=== PATIENT | male | born 1945 | race Caucasian/White ===

== ENCOUNTER 2019-08-03 23:10 | Emergency (ER) | payer MEDICARE, OTHER ==
[~2019-08-03] VITALS: Ht 177.8 cm; Wt 109.1 kg
[~2019-08-03 23:10] MED LIST: ASPIR-LOW81 MG PO; ASPIRIN 32325 MG/TAB PO; ASPIRIN 81M81 MG/TA2 PO; ASPIRIN E.C. 8181 MG PO; B/P MED; CIALIS20 MG PO; COREG 25MG25 MG/TAB PO; COREG25 MG PO; COZAAR100 MG PO; CRESTOR 10MG10 MG PO; CRESTOR10 MG PO; EFFIENT10 M1 PO; EFFIENT5 MG PO; FORTAMET1000 MG PO; GLUCOPHAGE1000 MG PO; HCTZ PO; IBUPROFEN800 M1 PO; IMDUR120 MG PO; IMDUR60 MG PO; LOW DOSE ASPIRI81 MG PO; METFORMIN500 MG PO; NIASPAN500 MG PO; NITROSTAT0.4 MG/TAB SL; NORCO 325 MG-51 TAB PO; NORVASC 5MG5 MG/TAB PO; PLAVIX 75MG TAB75 MG PO; PRILOSEC 20MG20 MG PO
[2019-08-03 23:35] LABS: BASO # 0.1 (0.0-0.2); BASO % 0.5 % (0.0-2.0); EOS # 0.2 (0.0-0.7); EOS % 1.1 % (0-4.0); GRAN # 7.1 (1.4-6.5); GRAN % 53.2 % (42.2-75.2); HEMATOCRIT 45.1 % (42.0-52.0); HEMOGLOBIN 15.5 g/dl (13.5-18.0); LYMPH # 4.6 (1.2-3.4); LYMPH % 34.6 % (20.0-51.0); MEAN CELL VOLUME 88 fl (80.0-100.0); MEAN CORPUSCULAR HEMOGLOBIN 30 pg (27.0-31.0); MEAN CORPUSCULAR HGB CONC 34 g/dl (33.0-37.0); MEAN PLATELET VOLUME 11.1 fl (7.4-10.4); MONO # 1.4 (0.1-0.6); MONO % 10.2 % (1.7-9.3); PLATELET COUNT 325 K/mm3 (130-400); RED BLOOD COUNT 5.15 M/mm3 (4.20-5.60); REDCELL DISTRIBUTION WIDTH-CV 12.6 % (11.5-14.5)
[2019-08-03] MEDS ORDERED: CARDIZEM CD 12120 MG PO (23:35)
[2019-08-03] MEDS ORDERED: ASPIRIN 81M81 MG/TA2 PO (23:35)
[2019-08-03] MEDS ORDERED: PLAVIX 75MG TAB75 MG PO (23:36)
[2019-08-03] MEDS ORDERED: COREG 25MG25 MG/TAB PO (23:36)
[2019-08-03] MEDS ORDERED: COZAAR100 MG PO (23:37)
[2019-08-03] MEDS ORDERED: CRESTOR 10MG10 MG PO (23:37)
[2019-08-03] MEDS ORDERED: HCTZ12.5TAB PO (23:37)
[2019-08-03] MEDS ORDERED: PRILOSEC 20MG20 MG PO (23:38)
[2019-08-03] MEDS ORDERED: GLUCOPHAGE500 MG/TAB PO (23:38)
[2019-08-03] MEDS ORDERED: NIASPAN 500MG500 MG PO (23:39)
[2019-08-03 23:41] LABS: INR 0.9 (0.8-3.0); PROTHROMBIN TIME 10.8 SECONDS (9.7-12.8)
[2019-08-03 23:46] LABS: ALANINE AMINOTRANSFERASE 27 U/L (21-72); ALBUMIN 4.9 gm/dL (3.5-5.0); ALKALINE PHOSPHATASE 89 U/L (50-136); ANION GAP 13 mmol/L (7-16); AST,SGOT 29 U/L (15-37); BILIRUBIN,TOTAL 0.9 mg/dL (0.0-1.0); BLOOD UREA NITROGEN 9 mg/dL (9-20); CALCIUM 9.7 mg/dL (8.4-10.2); CARBON DIOXIDE 26 mmol/L (22-30); CHLORIDE 103 mmol/L (98-107); CREATININE, serum 0.93 (0.66-1.25); GLUCOSE 115 mg/dL (74-106); POTASSIUM 3.3 mmol/L (3.4-5.0); SODIUM 141 mmol/L (137-145); TOTAL PROTEIN 8.4 gm/dL (6.4-8.2)
[2019-08-03 23:57] LABS: TROPONIN-I < 0.012 ng/mL (0.000-0.035)
[2019-08-04 03:30] VITALS: BP 156/84; PULSE 63; TEMP 98.8
== END 2019-08-04 03:55 | disposition home or self-care (01) ==
LOC: COL.ER 23:10
PROVIDERS: Emergency Medicine
DX: T50.995A Adverse effect of other drugs, medicaments and biological substances, initial encounter (principal); I10 Essential (primary) hypertension; E11.9 Type 2 diabetes mellitus without complications; I25.10 Atherosclerotic heart disease of native coronary artery without angina pectoris; Z79.82 Long term (current) use of aspirin; Z79.02 Long term (current) use of antithrombotics/antiplatelets; Z90.89 Acquired absence of other organs; Z79.84 Long term (current) use of oral hypoglycemic drugs
CPT/HCPCS: J2060

== ENCOUNTER → 2020-03-08 | Outpatient (CLI) | payer MEDICARE, OTHER ==
[~2020-03-08] MED LIST changes: +CARDIZEM CD 12120 MG PO; +GLUCOPHAGE500 MG/TAB PO; +HCTZ12.5TAB PO; +NIASPAN 500MG500 MG PO
== END ==
LOC: COL.RAD 07:04
DX: N28.1 Cyst of kidney, acquired (principal); I70.1 Atherosclerosis of renal artery; K57.30 Diverticulosis of large intestine without perforation or abscess without bleeding; Z90.49 Acquired absence of other specified parts of digestive tract
CPT/HCPCS: Q9967

== ENCOUNTER → 2024-04-13 | Outpatient (CLI) | payer MEDICARE ==
[~2024-04-13] MED LIST changes: +Gadoterate 20 ML VIAL IV ONE; +PRINIVIL10 MG PO
== END ==
LOC: COL.RAD 11:26
DX: N40.0 Benign prostatic hyperplasia without lower urinary tract symptoms (principal)
CPT/HCPCS: A9575

== ENCOUNTER 2024-04-22 15:47 | Inpatient (IN) | payer MEDICARE ==
[~2024-04-22] VITALS: Ht 177.8 cm; Wt 96.7 kg
[~2024-04-22 15:47] MED LIST changes: -Gadoterate 20 ML VIAL IV ONE
[2024-04-22] MEDS ORDERED: NS 1,000 ML IV ONE (16:30)
[2024-04-22 16:47] LABS: BASO % 0.2 % (0.0-2.0); EOS # 0.1 K/mm3 (0.0-0.7); EOS % 0.6 % (0.0-4.0); GRAN # 9.2 K/mm3 (1.4-6.5); GRAN % 74.4 % (42.2-75.2); HEMOGLOBIN 14.2 g/dl (13.5-18.0); LYMPH # 1.7 K/mm3 (1.2-3.4); LYMPH % 13.9 % (20.0-51.0); MEAN CELL VOLUME 83 fl (80.0-100.0); MEAN CORPUSCULAR HEMOGLOBIN 31 pg (27-31); MEAN CORPUSCULAR HGB CONC 37 g/dl (33.0-37.0); MEAN PLATELET VOLUME 11.6 fl (7.4-10.4); MONO # 1.3 K/mm3 (0.1-0.6); MONO % 10.1 % (1.7-9.3); PLATELET COUNT 303 K/mm3 (130-400); RED BLOOD COUNT 4.57 M/mm3 (4.20-5.60); REDCELL DISTRIBUTION WIDTH-CV 11.1 % (11.5-14.5)
[2024-04-22 17:27] LABS: ALBUMIN 3.8 g/dL (3.4-4.8); CALCIUM 9.2 mg/dL (8.4-10.2); CREATININE, serum 1.22 mg/dL (0.72-1.25); TOTAL PROTEIN 6.1 g/dl (6.2-8.1)
[2024-04-22 17:38] LABS: POTASSIUM 2.6 mEq/L (3.5-4.5)
[2024-04-22 17:48] LABS: BILIRUBIN,TOTAL 1.9 mg/dL (0.2-1.2)
[2024-04-22] MEDS ORDERED: dilTIAZem CD (24-HR) 120 MG CAP PO SCH (18:49)
[2024-04-22 19:00] LABS: COLLECTION METHOD CATHETER
[2024-04-22 19:02] LABS: URINE APPEARANCE CLEAR (CLEAR/HAZY); URINE BLOOD NEGATIVE (NEGATIVE); URINE COLOR YELLOW (YELLOW); URINE GLUCOSE NEGATIVE (NEGATIVE); URINE KETONE NEGATIVE (NEGATIVE); URINE NITRATE NEGATIVE (NEGATIVE); URINE PROTEIN(semi-quant) NEGATIVE (NEGATIVE)
[2024-04-22] MEDS ORDERED: COREG 25MG25 MG/TAB PO (19:13)
[2024-04-22] MEDS ORDERED: NEURONTIN300 MG/CAP PO (19:14)
[2024-04-22] MEDS ORDERED: NS & 40 mEq KCl 1,000 ML IV SCH (19:15)
[2024-04-22] MEDS ORDERED: Acetaminophen 325 MG TAB PO PRN (19:15)
[2024-04-22] MEDS ORDERED: HYDROCHLOROTH12.5 MG PO (19:15)
[2024-04-22] MEDS ORDERED: BENICAR40 MG PO (19:15)
[2024-04-22] MEDS ORDERED: ULTRAM 50MG TAB50 MG PO (19:16)
[2024-04-22] MEDS ORDERED: Glucagon 1 MG VIAL IM PRN (19:45)
[2024-04-22] MEDS ORDERED: Dextrose 50% Water 25 GM/50 ML SYRINGE IV PRN (19:45)
[2024-04-22] MEDS ORDERED: Dextrose (Glucose) 15 GM (4 x 3.75 GM) Chewable TABLET PACK PO PRN (19:45)
[2024-04-22] MEDS ORDERED: Famotidine 20 MG TAB PO SCH (21:00)
[2024-04-22] MEDS ORDERED: Rosuvastatin 10 MG **** subs to Atorvastatin 20 MG PO SCH (21:00)
--- NOTE | 2024-04-22 21:00 | NUR ---
PATIENT ARRIVED TO ROOM AT 2053. ORIENTED TO ROOM AND CALL LIGHT USE, ENSURED CALL LIGHT IS WITHIN REACH. ADVISED TO CALL IF HE NEEDS ASSISTANCE TO RESTROOM. HE IS ALERT AND ORIENTED, STABLE ON ROOM AIR. WAS ABLE TO WALK FROM CART TO BED WITH STANDBY ASSIST. STATES HE OCCASIONALLY USES CANE AT HOME WHEN HE FEELS LIKE HE NEEDS IT. BED IS LOCKED AND IN LOW POSITION WITH BED ALARM ON.
[2024-04-22 21:01] VITALS: BP 146/56; PULSE 60; TEMP 97.8
[2024-04-22 21:06] VITALS: BP_SYST 146
[2024-04-22] MEDS ORDERED: Atorvastatin 20 MG TAB PO SCH (21:30)
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
[2024-04-22 23:36] VITALS: BP 108/62; PULSE 64; TEMP 98
[2024-04-22 23:37] VITALS: BP_SYST 108
[2024-04-23] VITALS (10 sets, daily range): BP systolic 109–144; BP diastolic 63–79; PULSE 56–63; TEMP 97.4–98.3
[2024-04-23] MEDS ORDERED: *Potassium Replacement Protocol MC SCH ×2 (02:30→10:15)
--- NOTE | 2024-04-23 02:54 | NUR ---
Called hospitalist, Mahendra HOYT, to clarify placing patient on potassium protocol due to potassium of 2.6 in the ED. Mahendra okayed this and protocol orders are initiated.
[2024-04-23 06:57] LABS: BASO % 0.3 % (0.0-2.0); EOS # 0.1 K/mm3 (0.0-0.7); EOS % 0.7 % (0.0-4.0); GRAN # 8.8 K/mm3 (1.4-6.5); GRAN % 73.6 % (42.2-75.2); HEMATOCRIT 37.6 % (42.0-52.0); HEMOGLOBIN 13.6 g/dl (13.5-18.0); LYMPH # 1.7 K/mm3 (1.2-3.4); LYMPH % 14.1 % (20.0-51.0); MEAN CELL VOLUME 85 fl (80.0-100.0); MEAN CORPUSCULAR HEMOGLOBIN 31 pg (27-31); MEAN CORPUSCULAR HGB CONC 36 g/dl (33.0-37.0); MEAN PLATELET VOLUME 11.3 fl (7.4-10.4); MONO # 1.3 K/mm3 (0.1-0.6); MONO % 10.6 % (1.7-9.3); PLATELET COUNT 271 K/mm3 (130-400); RED BLOOD COUNT 4.42 M/mm3 (4.20-5.60); REDCELL DISTRIBUTION WIDTH-CV 11.2 % (11.5-14.5)
[2024-04-23 07:20] LABS: CALCIUM 8.5 mg/dL (8.4-10.2); CREATININE, serum 1.03 mg/dL (0.72-1.25)
[2024-04-23 07:25] LABS: POTASSIUM 2.9 mEq/L (3.5-4.5)
[2024-04-23 07:31] LABS: THYROID STIMULATING HORMONE 0.505 uIU/mL (0.350-4.940)
[2024-04-23] MEDS ORDERED: Clopidogrel 75 MG TAB PO SCH (09:00)
--- NOTE | 2024-04-23 09:34 | NUR ---
metalworker met with pt to discuss discharge planning. He reports to live alone in [place]. He sees Dr. Montgomery for PCP needs and obtains medications from [facility] with no difficulties. He verified to have Medicare [employer] insurance. Pt reports to be independent with ADLS and uses no DME. He does not have a DPOA-HC and reports to have two living sisters, Esmer [phone] and Lizy. Pt expressed no further needs. Pt allowed SW to use his phone to call sisterEsmer to obtain her full number as he could not provide this. Esmer had no questions and concerns with pt returning home upon discharge. PT/OT Pending Discharge Plan: likely home
[2024-04-23] MEDS ORDERED: Potassium Bicarbonate/Citrate 20 MEQ Effervescent TAB PO SCH ×2 (10:15→20:30)
--- NOTE | 2024-04-23 11:38 | NUR ---
D: Premium Auditor stopped by room on rounds A: Pt was resting and content. Pt has no needs right now. Pt appreciated the visit. P: Premium Auditor informed pt that if he needed anything from the reordering clerk area to let his nurse know. Premium Auditor will follow up as needed.
[2024-04-23] MEDS ORDERED: Gadoterate 20 ML VIAL IV ONE (11:59)
[2024-04-23] MEDS ORDERED: Insulin Lispro (HumaLOG) SQ SCH ×2 (12:00)
[2024-04-23] MEDS ORDERED: NS 100 ML IV SCH (12:26)
[2024-04-23] MEDS ORDERED: Iohexol 300 - 100 ML VIAL IV ONE (12:27)
[2024-04-23 14:42] LABS: CALCIUM 8.8 mg/dL (8.4-10.2); CREATININE, serum 1.04 mg/dL (0.72-1.25); POTASSIUM 3.6 mEq/L (3.5-4.5)
--- NOTE | 2024-04-23 20:51 | NUR ---
PATIENT RESTING IN BED WATCHING TV. DENIES PAIN, SHORTNESS OF BREATH, CHEST PAIN. CALL LIGHT IS WITHIN REACH. BED IS LOCKED AND IN LOW POSITION WITH BED ALARM ON. DENIES ANY OTHER NEEDS AT THIS TIME.
[2024-04-23] MEDS ORDERED: ENOXAPARIN 40 MG SQ SCH (21:00)
[2024-04-24 00:31] VITALS: BP_SYST 144
[2024-04-24 04:22] VITALS: BP_SYST 144
[2024-04-24 04:26] VITALS: BP 128/71; PULSE 61; TEMP 97.6
[2024-04-24 06:29] LABS: BASO % 0.3 % (0.0-2.0); EOS # 0.1 K/mm3 (0.0-0.7); EOS % 0.5 % (0.0-4.0); GRAN # 8.1 K/mm3 (1.4-6.5); GRAN % 68.8 % (42.2-75.2); HEMATOCRIT 37.3 % (42.0-52.0); HEMOGLOBIN 13.7 g/dl (13.5-18.0); LYMPH # 2.1 K/mm3 (1.2-3.4); LYMPH % 17.8 % (20.0-51.0); MEAN CELL VOLUME 86 fl (80.0-100.0); MEAN CORPUSCULAR HEMOGLOBIN 32 pg (27-31); MEAN CORPUSCULAR HGB CONC 37 g/dl (33.0-37.0); MEAN PLATELET VOLUME 11.2 fl (7.4-10.4); MONO # 1.4 K/mm3 (0.1-0.6); MONO % 11.9 % (1.7-9.3); PLATELET COUNT 260 K/mm3 (130-400); RED BLOOD COUNT 4.34 M/mm3 (4.20-5.60); REDCELL DISTRIBUTION WIDTH-CV 11.6 % (11.5-14.5)
[2024-04-24 06:44] LABS: CALCIUM 8.6 mg/dL (8.4-10.2); CREATININE, serum 0.87 mg/dL (0.72-1.25); POTASSIUM 4.1 mEq/L (3.5-4.5)
[2024-04-24 07:27] VITALS: BP 123/69; PULSE 60; TEMP 97.5
[2024-04-24 08:22] VITALS: BP_SYST 123
--- NOTE | 2024-04-24 09:02 | NUR ---
PATIENT SITTING UP IN CHAIR. ALERT AND ORIENTED. WATCHING TV, EATING BREAKFAST. PATIENT TELLS THIS NURSE HE "FEELS MUCH BETTER AND IS READY TO GO HOME." DENIES PAIN OR DISCOMFORT. VSS. CALL LIGHT WITHIN REACH.
[2024-04-24] MEDS ORDERED: CRESTOR20 MG PO (09:30)
--- NOTE | 2024-04-24 11:00 | NUR ---
THIS RN PROVIDED PATIENT WITH DISCHARGE EDUCATION AND INSTRUCTIONS. ALL QUESTIONS ANSWERED. IV TO LFA DISCONTINUED FOR DISCHARGE. MINIMAL DRAINAGE NOTED. PATIENT DENIES FURTHER NEEDS/CONCERNS AT THIS TIME.
[2024-04-24 11:39] VITALS: BP 158/84; PULSE 62; TEMP 97.6
--- NOTE | 2024-04-24 12:00 | NUR ---
PATIENT ESCORTED OFF UNIT VIA WHEELCHAIR BY THIS RN. ALL BELONGINGS WITH PATIENT.
== END 2024-04-24 12:00 | disposition home or self-care (01) | DRG 641 ==
LOC: COL.ER 15:47 → MEDICAL 19:38
PROVIDERS: Personal Emergency Response Attendant; Physician Assistant; ADMIT Internal Medicine
PROC: 0TPB70Z Removal of Drainage Device from Bladder, Via Natural or Artificial Opening (ICD-10-PCS; principal; 2024-04-22)
DX: E87.1 Hypo-osmolality and hyponatremia (principal); E87.6 Hypokalemia; E78.5 Hyperlipidemia, unspecified; Z96.0 Presence of urogenital implants; K21.9 Gastro-esophageal reflux disease without esophagitis; E11.9 Type 2 diabetes mellitus without complications; I11.0 Hypertensive heart disease with heart failure; Z20.822 Contact with and (suspected) exposure to COVID-19; R29.701 NIHSS score 1; R33.9 Retention of urine, unspecified; Z95.0 Presence of cardiac pacemaker; Z87.01 Personal history of pneumonia (recurrent); Z90.49 Acquired absence of other specified parts of digestive tract; Z90.89 Acquired absence of other organs; Z87.891 Personal history of nicotine dependence
CPT/HCPCS: A9575; J1650; J3480; J7030; Q9967

== ENCOUNTER 2024-05-06 10:27 | Inpatient (IN) | payer MEDICARE ==
[~2024-05-06] VITALS: Ht 177.8 cm; Wt 92.3 kg
[~2024-05-06 10:27] MED LIST changes: +BENICAR40 MG PO; +CRESTOR20 MG PO; +HYDROCHLOROTH12.5 MG PO; +NEURONTIN300 MG/CAP PO; +ULTRAM 50MG TAB50 MG PO
[2024-05-06] MEDS ORDERED: PRINIVIL10 MG PO (16:31)
[2024-05-06] MEDS ORDERED: Sennosides/Docusate 8.6-50 MG TAB PO PRN (17:15)
[2024-05-06] MEDS ORDERED: Docusate Sodium 100 MG CAP PO PRN (17:15)
[2024-05-06] MEDS ORDERED: Polyethylene Glycol 3350 17 GM PDS PO PRN (17:15)
[2024-05-06] MEDS ORDERED: Acetaminophen 325 MG TAB PO PRN (17:15)
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
[2024-05-06 17:37] VITALS: BP 114/64; PULSE 63; TEMP 98.4
[2024-05-06 21:00] VITALS: BP_SYST 114
[2024-05-06] MEDS ORDERED: metFORMIN 500 MG TAB PO SCH (21:00)
[2024-05-06] MEDS ORDERED: Atorvastatin 40 MG TAB PO SCH (21:00)
[2024-05-06] MEDS ORDERED: Rosuvastatin 20 MG **** subs to Atorvastatin 40 MG PO SCH (21:00)
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
[2024-05-07] MEDS ORDERED: Heparin 5,000 UNITS/ML 1 ML VIAL SQ SCH
--- NOTE | 2024-05-07 02:55 | NUR ---
PATIENT UP TO RESTROOM WITH 2 ASSISST, GAIT BELT AND WALKER. PATIENT VOIDING SAMANTA, CLEAR URINE. CERVICLE FUSION SURGICAL SITE IS WELL APPROXIMATED AND OPEN TO AIR.
[2024-05-07 04:48] VITALS: BP 131/77; PULSE 70; TEMP 97.5
[2024-05-07 05:45] VITALS: BP 177/80; PULSE 70; TEMP 98.3
--- NOTE | 2024-05-07 06:09 | NUR ---
ENTERED PATIENT ROOM. RT EYE SWOLLEN ALMOST SHUT, COLD NS SOAKED GAUZE APPLIED TO AREA. PATIENT STATES STILL ABLE TO SEE OUT OF AFFECTED EYE. DRIED BLOOD MATTED HAIR NOTED ON BEDSIDE TABLE. PATIENT STATED IT WAS PULLING SO HE TRIED TO REMOVE SOME AND RIPPED SOME HAIR OUT. WARM WASH CLOTH PLACED ON HAIR IN AN ATTEMPT TO LOOSEN DRIED BLOOD.
[2024-05-07 07:00] VITALS: BP_SYST 177
[2024-05-07] MEDS ORDERED: Omeprazole 20 MG **** subs to Pantoprazole 40 MG PO SCH (07:00)
--- NOTE | 2024-05-07 07:45 | NUR ---
Pt a&ox4. BP high this morning. BP meds administered as well as other morning medications. Shift assessment complete. Up with assist x1, walker, and gait belt. Merrill collar on. No c/o pain at this time. Call light and personal belongings within reach. No further needs at this time. Refused breakfast this morning.
[2024-05-07] MEDS ORDERED: Carvedilol 25 MG TAB PO SCH (08:00)
[2024-05-07] MEDS ORDERED: dilTIAZem CD (24-HR) 120 MG CAP PO SCH (09:00)
[2024-05-07] MEDS ORDERED: Niacin SA 250 MG CAP PO SCH (09:00)
[2024-05-07] MEDS ORDERED: Polyethylene Glycol 3350 17 GM PDS PO SCH (09:00)
[2024-05-07] MEDS ORDERED: Lisinopril 10 MG TAB PO SCH (09:00)
[2024-05-07] MEDS ORDERED: Influenza Virus Vaccine, Hi-Dose Triv '24-25 (65 YR+) 0.5 ML SYRINGE IM SCH (09:00)
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
[2024-05-07 17:41] VITALS: BP 149/71; PULSE 61; TEMP 97.7
[2024-05-07 22:47] VITALS: BP_SYST 149
--- NOTE | 2024-05-08 01:55 | NUR ---
PT RESTING IN BED AT THIS TIME. CALL LIGHT IS WITHIN REACH. MEDICATIONS ADMINISTERED PER EMAR. ASSESSMENT COMPLETED EARLIER. PT HAS NO COMPLAINTS. VSS. COMPLAINT OF SOME PAIN IN SHOULDER. TYL GIVEN AND READJUSTED. NO OTHER NEEDS AT THIS TIME.
[2024-05-08 05:25] VITALS: BP 133/75; PULSE 60; TEMP 97.9
[2024-05-08 06:57] VITALS: BP_SYST 133
--- NOTE | 2024-05-08 08:00 | NUR ---
PT AWAKE AND RESTING IN CHAIR. SCHEDULED MEDS GIVEN PER eMAR. ASPEN COLLAR IN PLACE. PT DENIES PAIN. STATES SOME DISCOMFORT D/T HOSPITAL BED AND ALSO WASN'T ABLE TO SLEEP WELL LAST NIGHT B/C OF BED. NO OTHER CONCERNS. CHAIR ALARM ON AND CALL LIGHT WITHIN REACH.
--- NOTE | 2024-05-08 13:57 | NUR ---
SW met with patient briefly to follow up before the weekend. Patient denied any needs at this time. Discussed scheduling a family meeting for next Saturday which patient is agreeable to and stated "I only want my two sisters and no one else." SW agreed to communicate this to his family. SW called sister Esmer ([phone]) to discuss family meeting. She is agreeable to 05/13 at 1015 and stated she will contact their sister Lizy. IPR Director notified of meeting time. Discharge plan: re-eval
[2024-05-08 18:00] VITALS: BP 113/62; PULSE 60; TEMP 97.6
[2024-05-08 19:21] VITALS: BP_SYST 113
[2024-05-08] MEDS ORDERED: Melatonin 3 MG TAB PO SCH (21:00)
--- NOTE | 2024-05-08 23:48 | NUR ---
PT IN READJUSTED IN BED. CALL LIGHT IS WITHIN REACH. NO COMPLAINTS AT THIS TIME. ASSESSMENT COMLETED EARLIER. MEDICATONS ADMINISTERED PER EMAR. VSS. DENIES N/V.
[2024-05-09 06:00] VITALS: BP 138/53; PULSE 60; TEMP 97.5
[2024-05-09 06:49] VITALS: BP_SYST 138
--- NOTE | 2024-05-09 08:22 | NUR ---
PT RESTING IN CHAIR, ALERT AND ORIENTEDX4. ASSESSED PT. RATES PAIN 2/10 IN THE NECK. ASPEN COLAR IS ON. MERCEDES AND SUTURES TO FACE AND SCALP ARE INTACT. LUE EDEMA. LUE WEAKNESS. GAVE PT MORNING MEDS. NO OTHER COMPLAITNS AT THIS TIME. CALL LIGHT WITHIN REACH.
[2024-05-09] MEDS ORDERED: Clopidogrel 75 MG TAB PO SCH (09:00)
[2024-05-09] MEDS ORDERED: Dextrose 50% Water 25 GM/50 ML SYRINGE IV PRN (16:30)
[2024-05-09] MEDS ORDERED: Dextrose (Glucose) 15 GM (4 x 3.75 GM) Chewable TABLET PACK PO PRN (16:30)
[2024-05-09] MEDS ORDERED: Glucagon 1 MG VIAL IM PRN (16:30)
[2024-05-09 16:56] VITALS: BP 130/70; PULSE 75; TEMP 97.5
[2024-05-09] MEDS ORDERED: Insulin Lispro (HumaLOG) SQ SCH (17:00)
[2024-05-09 18:57] VITALS: BP_SYST 130
--- NOTE | 2024-05-09 22:49 | NUR ---
PT IS CURRENTLY IN CHAIR AT BEDSIDE. HAS NO COMPLAINTS AT THIS TIME. CALL LIGHT IS WITHIN REACH. ASSESSMENT COMPLETED EARLIER. MEDICATIONS ADMINISTERED PER EMAR. VSS. HAS SOME PAIN IN NECK AND TYLENOL WAS ADMINISTERED PER EMAR.
--- NOTE | 2024-05-10 02:55 | NUR ---
PT COMPLAINING OF 7/10 PAIN FROM SHOULDERS TO LOWER BACK. RE-POSITIONED PT, GAVE WARM COMPRESS, AND TYL ADMINISTERED. PT STILL COMPLAINS 7/10 PAIN. STATES THAT HE "IS GIVING UP" AND THE "PAIN IS WORSE THAN BEFORE". MAXIMO MALAVE NOTIFIED. WILL GIVE TRAMADOL PER EMAR.
[2024-05-10] MEDS ORDERED: traMADol 50 MG TAB PO PRN (03:00)
[2024-05-10 06:06] VITALS: BP 101/63; PULSE 60; TEMP 97.4
--- NOTE | 2024-05-10 06:12 | NUR ---
MEDS PASSED. CALL LIGHT WITHIN REACH. NO COMPLAINTS AT THIS TIME.
[2024-05-10 06:53] VITALS: BP_SYST 101
--- NOTE | 2024-05-10 09:31 | NUR ---
PT RESTING IN BED, ALERT AND ORIENTEDX4. ASSESSED PT. RATES PAIN 1/10 IN THE NECK. PT STATES THAT THE TORADOL HELPED LAST NIGHT. EDEMA IN LUE. LUE WEAKNESS. NO OTHER COMPLAINTS AT THIS TIME. CALL LIGHT WITHIN REACH.
[2024-05-10 16:38] VITALS: BP 123/78; PULSE 84; TEMP 97.4
[2024-05-10 18:57] VITALS: BP_SYST 123
--- NOTE | 2024-05-10 20:57 | NUR ---
PT LAYING IN BED. NO NEEDS AT THIS TIME. CALL LIGHT IS WITHIN REACH. STATES THAT HE IS FEELING MUCH BETTER AFTER LAST NIGHT. ASSESSMENT COMPLETED EARLIER. MEDICATIONS ADMINISTERED PER EMAR. PERSONAL BELONGINGS IN REACH. MEPILEX ON
[2024-05-10] MEDS ORDERED: Sodium Chloride 0.65% Nasal Irrig 45 ML BOTTLE NS PRN (21:30)
[2024-05-11 05:57] VITALS: BP 133/75; PULSE 60; TEMP 98
[2024-05-11 07:02] VITALS: BP_SYST 133
--- NOTE | 2024-05-11 08:37 | NUR ---
PT SITTING UP IN BED. REFUSED BREAKFAST. AM MEDS GIVEN ORDERED. PT TAKES PILLS WHOLE WITH STRAW FOR LIQUIDS. PT DENIES PAIN THIS AM. HEPARIN DVT PROPHALAXIS AND ASA. PT IS A/O X4. 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
[2024-05-11 08:52] LABS: BASO % 0.3 % (0.0-2.0); EOS # 0.1 K/mm3 (0.0-0.7); EOS % 1.1 % (0.0-4.0); GRAN # 5.2 K/mm3 (1.4-6.5); GRAN % 78.9 % (42.2-75.2); LYMPH # 0.6 K/mm3 (1.2-3.4); LYMPH % 9.3 % (20.0-51.0); MEAN CELL VOLUME 91 fl (80.0-100.0); MEAN CORPUSCULAR HGB CONC 34 g/dl (33.0-37.0); MONO # 0.6 K/mm3 (0.1-0.6); MONO % 9.6 % (1.7-9.3); PLATELET COUNT 306 K/mm3 (130-400); RED BLOOD COUNT 2.79 M/mm3 (4.20-5.60); REDCELL DISTRIBUTION WIDTH-CV 13.6 % (11.5-14.5)
[2024-05-11 09:12] LABS: CALCIUM 8.2 mg/dL (8.4-10.2); CREATININE, serum 0.73 mg/dL (0.72-1.25); POTASSIUM 3.4 mEq/L (3.5-4.5)
[2024-05-11 09:30] LABS: HEMATOCRIT 25.5 % (42.0-52.0); HEMOGLOBIN 8.6 g/dl (13.5-18.0); MEAN CORPUSCULAR HEMOGLOBIN 31 pg (27-31)
[2024-05-11] MEDS ORDERED: Potassium Bicarbonate/Citrate 20 MEQ Effervescent TAB PO ONE (10:00)
--- NOTE | 2024-05-11 14:39 | NUR ---
Admission QIM scores were reviewed by the team. Code of 3 chosen for oral hygiene was determined by team discussion to be the most usual performance before interventions for this patient during the assessment period. Code of 88 chosen for shower/bathe self was determined by team discussion to be the most usual performance before interventions for this patient during the assessment period. Code of 88 chosen for putting on/taking off footwear was determined by team discussion to be the most usual performance before interventions for this patient during the assessment period. Code of 3 chosen for sit to lying was determined by team discussion to be the most usual performance before interventions for this patient during the assessment period. Code of 88 chosen for walking 10 feet was determined by team discussion to be the most usual performance for this patient during the discharge assessment period. Code of 88 chosen for walking 50 feet w/ 2 turns was determined by team discussion to be the most usual performance before interventions for this patient during the discharge assessment period. Code of 88 chosen for walking 150 feet was determined by team discussion to be the most usual performance before interventions for this patient during the assessment period. Code of 3 chosen for 1 step was determined by team discussion to be the most usual performance before interventions for this patient during the assessment period. Code of 3 chosen for 4 steps was determined by team discussion to be the most usual performance before interventions for this patient during the assessment period.--Kath García,
--- NOTE | 2024-05-11 15:46 | NUR ---
ELENA met with patient and his sister Belgica in room to check in. Patient voicing frustration that "I'm still here". Patient anxious to return home. ELENA discussed upcoming family meeting scheduled for Saturday at 1015, which Belgica and patient are agreeable. Discharge plan: Home
[2024-05-11 17:43] VITALS: BP 122/75; PULSE 60; TEMP 98
--- NOTE | 2024-05-11 17:49 | NUR ---
PT HAS HAD SOME ORTHOSTATIC HYPOTENSION TODAY BUT THIS PM MILD. PT IS ASYMPTOMATIC THIS PM.
[2024-05-11 19:22] VITALS: BP_SYST 122
--- NOTE | 2024-05-12 03:13 | NUR ---
ASSESSMENT COMPLETED EARLIER. MEDICATIONS ADMINISTERED PER EMAR. NO COMPLAINTS AT THIS TIME. CALL LIGHT IS WITHIN REACH. VSS. DENIES N/V.
[2024-05-12 04:55] VITALS: BP 143/77; PULSE 65; TEMP 97.8
[2024-05-12 07:01] VITALS: BP_SYST 143
--- NOTE | 2024-05-12 08:40 | NUR ---
PT UP TO BR VOIDED AND RETURNED TO BED FOR BREAKFAST. NO C/O DIZZINESS THIS AM. AM MEDS GIVEN PER ORDERS. PT WORKING WITH ST AT THIS TIME. MEPILEX TO MULTIPLE ABRASIONS TO BILATERAL UPPER EXT. PT DENIES PAIN OR NEEDS AT THIS TIME
--- NOTE | 2024-05-12 11:05 | NUR ---
SPOKE WITH DR. POWELL NEUROSURGEON AT [facility]. HE REQUESTED TO BE NOTIFIED WHEN PT DISCHARGES SO HE CAN MAKE A FOLLOW UP APPT WITH PT. [phone]
[2024-05-12 18:28] VITALS: BP 146/76; PULSE 60; TEMP 97.7
--- NOTE | 2024-05-12 19:04 | NUR ---
PT IS IN BED SLEEPING. EASILY AWOKEN. CALL LIGHT IS WITHIN REACH.
[2024-05-12 19:11] VITALS: BP_SYST 146
--- NOTE | 2024-05-12 22:18 | NUR ---
ASSESSMENT COMPLETED EARLIER. MEDICATIONS ADMINISTERED PER EMAR. NO COMPLAINTS AT THIS TIME. BANDAGES CHANGED, NOW CDI. POSSESSIONS ARE WITHIN REACH. NOW LAYING IN BED WATCHING TV. VSS. DENIES N/V AT THIS TIME.
--- NOTE | 2024-05-13 02:42 | NUR ---
PT HAVING TROUBLE SLEEPING THIS PM. STATES "I JUST CANT GET COMFORTABLE".
[2024-05-13 05:52] VITALS: BP 126/69; PULSE 62; TEMP 98.4
[2024-05-13 07:00] VITALS: BP_SYST 126
--- NOTE | 2024-05-13 08:15 | NUR ---
PT A&OX4. VSS. UP IN W/C WAITING FOR THERAPY. SHIFT ASSESSMENT COMPLETE AND MEDICATIONS ADMINISTERED. PT IS UP WITH ASSIST X1, WALKER, AND GB. WOUNDS ASSESSED FOR DRAINAGE AND BLEEDING. NONE FOUND. NO FURTHER NEEDS AT THIS TIME. CALL LIGHT AND PERSONAL BELONGINGS WITHIN REACH.
--- NOTE | 2024-05-13 13:43 | NUR ---
SW attended team conference this morning. Team discussed patient's progress with therapy and discharge recommendations. Team set tentative discharge date of 05/22. SW attended family meeting with Dr. Gonzalez, Banquet Server Kath and therapy team, patient and sister Belgica. Team reviewed patient's progress in program and discuss discharge recommendations. All questions answered from patient and sister. Sister reports that plan is for patient to go to her home at discharge until he is stronger. Belgica provided her address to for HH referral as [address] [place] [address]. SW met with patient to review team conference notes and provided Medicare.gov list of HH providers. Patient and sister to review HH list and let SW know their preference. All questions answered. Discharge plan: Home with sister and HH
[2024-05-13 17:58] VITALS: BP 137/74; PULSE 64; TEMP 97.4
[2024-05-13 19:03] VITALS: BP_SYST 137
--- NOTE | 2024-05-13 21:36 | NUR ---
Patient assessed around 2024. Alert and oriented, and able to make needs known. Denies having pain and discomfort. Denies SOB and dyspnea. LS CTA. HRR. BSAx4. Edema to LUE. Patient voiced no questions, needs, or concerns at time of assessment. In bed with call light within reach. Bed alarm on.
--- NOTE | 2024-05-13 23:21 | NUR ---
Patient given PRN Tylenol as requested for generalized pain. Assisted to recliner as requested to get a break from the bed. Chair alarm on. Call light within reach.
[2024-05-14 05:46] VITALS: BP 120/65; PULSE 61; TEMP 97.4
--- NOTE | 2024-05-14 05:54 | NUR ---
Patient sat in recliner for a short time during the night. Received Tylenol once this shift. Denies needing any further PRN medication at this time. Voices no questions, needs, or concerns at this time. In bed with call light within reach.
[2024-05-14 07:00] VITALS: BP_SYST 120
[2024-05-14 07:25] LABS: BASO % 0.3 % (0.0-2.0); EOS # 0.1 K/mm3 (0.0-0.7); EOS % 1.2 % (0.0-4.0); GRAN # 4.3 K/mm3 (1.4-6.5); GRAN % 72.3 % (42.2-75.2); HEMATOCRIT 25.8 % (42.0-52.0); LYMPH # 0.9 K/mm3 (1.2-3.4); LYMPH % 15.7 % (20.0-51.0); MEAN CELL VOLUME 91 fl (80.0-100.0); MEAN CORPUSCULAR HEMOGLOBIN 32 pg (27-31); MEAN CORPUSCULAR HGB CONC 35 g/dl (33.0-37.0); MEAN PLATELET VOLUME 10.6 fl (7.4-10.4); MONO # 0.6 K/mm3 (0.1-0.6); MONO % 10.2 % (1.7-9.3); PLATELET COUNT 350 K/mm3 (130-400); RED BLOOD COUNT 2.84 M/mm3 (4.20-5.60); REDCELL DISTRIBUTION WIDTH-CV 13.9 % (11.5-14.5)
[2024-05-14 07:51] LABS: CALCIUM 8.5 mg/dL (8.4-10.2); CREATININE, serum 0.79 mg/dL (0.72-1.25); POTASSIUM 3.4 mEq/L (3.5-4.5)
--- NOTE | 2024-05-14 08:00 | NUR ---
Pt a&ox4. VSS. No c/o pain at this time. Currently in bed eating breakfast. Shift assessment complete and medications administered. Pt is up with assist x1, walker, and gait belt. No further needs at this time. Call light within reach.
[2024-05-14] MEDS ORDERED: Potassium Bicarbonate/Citrate 20 MEQ Effervescent TAB PO ONE (09:15)
[2024-05-14 17:44] VITALS: BP 142/60; PULSE 64; TEMP 97.6
[2024-05-14 19:00] VITALS: BP_SYST 142
--- NOTE | 2024-05-14 22:13 | NUR ---
ASSESSMENT COMPLETED EARLIER. MEDICATIONS ADMINISTERED PER EMAR. NO COMPLAINTS AT THIS TIME. CALL LIGHT IS WITHIN REACH. DRESSINGS CHANGED
--- NOTE | 2024-05-15 00:30 | NUR ---
Patient in watching tv, with C-collar, denies further need at this time.
--- NOTE | 2024-05-15 02:28 | NUR ---
Patient up to the bathroom at this tiwe with x1 assist walker and gaitbelt. Reports back pain, didn't rate the pain, doens't want to take tramadol and wanted to take tylenol, will continue to monitor.
[2024-05-15 05:54] VITALS: BP 102/56; PULSE 62; TEMP 97.4
[2024-05-15 07:00] VITALS: BP_SYST 102
--- NOTE | 2024-05-15 07:45 | NUR ---
PT A&OX4. VSS. NO C/O PAIN AT THIS TIME. PT CURRENTLY IN BED RESTING BEFORE THERAPY. SHIFT ASSESSMENT COMPLETE AND MEDICATIONS ADMINISTERED. PT UP W/ ASSIST X1 W/ WALKER AND GAIT BELT. NO FURTHER NEEDS AT THIS TIME. CALL LIGHT WITHIN REACH.
--- NOTE | 2024-05-15 12:01 | NUR ---
factory worker met with pt to check in and assess for any needs. He reports no needs at this time. SW dicussed if he looking into the Medicare.gov HH agencies he was provided. Pt went on to explain there are multiple members of his syn[employer] that are retired OT/PT's and he knows a Doctor to assist. SW attempted to provide further information on the benefits of HH, but pt was adamant about his synagogue members aiding him. SW advised another SW will follow up on Saturday to discuss further, if he has questions. Discharge Plan: re-eval, home with HH
[2024-05-15 17:46] VITALS: BP 135/73; PULSE 62; TEMP 97.3
[2024-05-15 19:11] VITALS: BP_SYST 135
--- NOTE | 2024-05-15 19:17 | NUR ---
Patient assessed at this time, see shift assessment, denies pain or discomfort at this time, c-collar on, denies further needs, call light and personal items within reach, dressing to bilateral arms clean, dry and intact, call light and personal items within reach, will continue to monitor.
--- NOTE | 2024-05-16 05:39 | NUR ---
Patient up to the bathroom at this time, has been voiding several times overnight, bladder scanned patient and resulted to 127ml, will continue to monitor.
[2024-05-16 06:00] VITALS: BP 152/75; PULSE 63; TEMP 98.1
[2024-05-16 07:00] VITALS: BP_SYST 152
--- NOTE | 2024-05-16 08:52 | NUR ---
PT UP TO RECLINER FOR BREAKFAST. AM MEDS GIVEN ORDERED. INSULIN NOT REQUIRED. PT DENIES PAIN. ATE 100% OF BREAKFAST. MEPILEX TO ABRASIONS ON BUE. ASPEN COLLAR INPLACE PER ORDERS. LS CTA, BOWEL SOUNDS ACTIVE X4. PT DENIES NEEDS AT THIS TIME.
[2024-05-16 18:07] VITALS: BP 102/63; PULSE 63; TEMP 97.9
[2024-05-16 18:41] VITALS: BP_SYST 102
--- NOTE | 2024-05-16 20:18 | NUR ---
Patient resting in bed, denies pain or discomfort, c-collar on, dressing to BUE clean, dry, intact, denies further needs, call light and personal items within reach, will continue to monitor.
[2024-05-17 06:00] VITALS: BP 112/65; PULSE 88; TEMP 97.9
[2024-05-17 07:00] VITALS: BP_SYST 112
--- NOTE | 2024-05-17 09:20 | NUR ---
PT UP TO RECLINER FOR BREAKFAST. AM MEDS GIVEN. ASSESSMENTS WNL, CAREPLAN REVIEWED AND PT VERBALIZED UNDERSTANDING. PT DENIES PAIN OR NEEDS AT THIS TIME.
[2024-05-17 19:00] VITALS: BP_SYST 112
--- NOTE | 2024-05-17 19:17 | NUR ---
PT SITTING IN BED. FRIEND AT BEDSIDE. CALL LIGHT IS WITHIN REACH.
--- NOTE | 2024-05-18 00:41 | NUR ---
ASSESSMENT COMPLETED EARLIER, MEDICATIONS ADMINISTERED PER EMAR. NO COMPLAINTS AT THIS TIME. CALL LIGHT IS WITHIN REACH.
[2024-05-18 05:45] VITALS: BP 164/71; PULSE 69; TEMP 97.6
--- NOTE | 2024-05-18 06:40 | NUR ---
awake sitting up in chair, bedside shift reprot received from JAYLA Teague
[2024-05-18 07:16] VITALS: BP_SYST 164
--- NOTE | 2024-05-18 07:55 | NUR ---
am meds given, has had breakfast and tolerated well, is ready for therapy
--- NOTE | 2024-05-18 08:15 | NUR ---
physical therapy in to work with patient
--- NOTE | 2024-05-18 09:00 | NUR ---
returned to room from physical therapy, speech therapy now in to work with randal
--- NOTE | 2024-05-18 09:52 | NUR ---
Dr Gonzalez was in to see patient
--- NOTE | 2024-05-18 10:05 | NUR ---
full assessment completed, see interventions for further info, has 2 foam dressings to left forearm, has scabbed assessed under these, also has foam dressing to inner right forearm also with scabbed area, C collar in place, he needs needs
--- NOTE | 2024-05-18 11:09 | NUR ---
occupational therapy in to work with patient and assist with taking a shower
--- NOTE | 2024-05-18 13:00 | NUR ---
physical therapy in to work with patient
--- NOTE | 2024-05-18 15:16 | NUR ---
psychologist social in to see patient, and katien with social services analyst from [facility]
--- NOTE | 2024-05-18 17:07 | NUR ---
turntable worker met with patient to discuss home health services as patient is scheduled for discharge on 05/22. Patient stated he did not want home health services as he has many friends and community members that are willing to help him at home. Patient stated he would be agreeable to outpatient PT and OT. SW provided the list of options for outpatient OT and PT. Patient stated he did not want to rely on someone else for transportation but would need to as he is unable to drive. SW expressed she would follow up on Saturday for patient's choice on home health or outpatient PT/OT. ELENA notified Kath, IPR director. ELENA received a call from Dashawn's sister whom reported she was planning on him staying with her for a bit when he comes home from the hospital until he felt 100% comfortable being alone. ELENA discussed home health and outpatient PT/OT with patient's sister. His sister is going to discuss this with patient and make sure he chooses an agency either way for home health or outpatient. Discharge plan: Home with either home health or outpatient PT/OT
[2024-05-18 18:20] VITALS: BP 119/54; PULSE 65; TEMP 98.5
--- NOTE | 2024-05-18 18:56 | NUR ---
bedside shift report given to JAYLA Teague
[2024-05-18 19:00] VITALS: BP_SYST 119
--- NOTE | 2024-05-18 19:12 | NUR ---
PT SITTING IN CHAIR. NO COMPLAINTS AT THIS TIME. CALL LIGHT IS WITHIN REACH.
--- NOTE | 2024-05-18 21:31 | NUR ---
ASSESSMENT COMPLETED EARLIER. MEDICATIONS ADMINISTERED PER EMAR. NO COMPLAINTS AT THIS TIME. VSS. CALL LIGHT IS WITHIN REACH. PT SAT IN CHAIR AT BEDSIDE FOR ROUGHLY AN HOUR. HE THEN WENT TO THE BATHROOM AND VOIDED. WENT TO BED AND IS NOW WATCHING TV.
[2024-05-19 06:04] VITALS: BP 141/71; PULSE 61; TEMP 98.1
[2024-05-19 07:00] VITALS: BP_SYST 141
--- NOTE | 2024-05-19 08:00 | NUR ---
PT A&OX4. VSS. NO C/O PAIN AT THIS TIME. PT UP IN RECLINER WATCHING TV. SHIFT ASSESSMENT COMPLETE AND MEDS ADMINISTERED. PT IS UP W/ ASSIST X1 W/ WALKER. NO FURTHER NEEDS AT THIS TIME. CALL LIGHT WITHIN REACH.
[2024-05-19 17:56] VITALS: BP 90/45; PULSE 67; TEMP 97.4
--- NOTE | 2024-05-19 19:10 | NUR ---
PT SITTING IN CHAIR. NO COMPLAINTS AT THIS TIME. CALL LIGHT IS WITHIN REACH.
--- NOTE | 2024-05-19 19:42 | NUR ---
PT DRESSINGS CHANGED WITH NEW MEPILEX. CDI
[2024-05-19 19:43] VITALS: BP_SYST 90
--- NOTE | 2024-05-19 21:46 | NUR ---
ASSESSMENT COMPLETED EARLIER. MEDICATIONS ADMINISTERED PER EMAR. NO COMPLAINTS AT THIS TIME. THIS NURSE REMINDS PT TO USE CALL LIGHT WHEN HE NEEDS SOMETHING. PT TRIES TO GET UP WITHOUT CALLING AND GETS AGGRAVATED AT THE ALARMS.
[2024-05-20 05:00] VITALS: BP 125/62; PULSE 68; TEMP 97.8
[2024-05-20 07:00] VITALS: BP_SYST 125
--- NOTE | 2024-05-20 07:30 | NUR ---
PT A&OX4. VSS. NO C/O PAIN AT THIS TIME. SHIFT ASSESSMENT COMPLETE AND MEDICATIONS ADMINISTERED. PT IS UP WITH ASSIST X1 W/ WALKER. ASPEN COLLAR ON. NO FURTHER NEEDS AT THIS TIME. PT WAS EDUCATED ABOUT NOT GETTING UP BY HIMSELF. IN RECLINER EATING BREAKFAST. CHAIR ALARM ON. CALL LIGHT WITHIN REACH.
--- NOTE | 2024-05-20 17:24 | NUR ---
plastics factory worker attended IPR team conference. Patient will be ready to discharge tomorrow with outpatient PT and OT. SW met with patient and updated him of discharge tomorrow rather than Saturday. Patient is okay with this plan and would like outpatient PT and OT at [facility]. SW contacted patient's sister, Esmer, whom is okay to milk pickup truck driver patient tomorrow around 11 am. SW met with patient again and reviewed the IPR team conference notes. No questions or concerns. DIscharge plan: Home with outpatient PT and OT at [facility]
[2024-05-20 17:30] VITALS: BP 95/61; PULSE 65; TEMP 97.5
[2024-05-20 19:13] VITALS: BP_SYST 95
--- NOTE | 2024-05-20 19:14 | NUR ---
PT SITTING IN BED. NO COMPLAINTS AT THIS TIME. CALL LIGHT IS WITHIN REACH. VSS.
--- NOTE | 2024-05-20 22:19 | NUR ---
ASSESSMENT COMPLETED EARLIER. MEDICATIONS ADMINISTERED PER EMAR. NO COMPLAINTS AT THIS TIME. CALL LIGHT IS WITHIN REACH. PT IS NOW IN BED.
[2024-05-21 05:47] VITALS: BP 152/81; PULSE 65; TEMP 97.9
[2024-05-21 08:47] VITALS: BP_SYST 152
--- NOTE | 2024-05-21 10:20 | NUR ---
PT HEALTH SUMMARY, DISCHARGE SUMMARY, [facility] HOME MEDS PRINTED AND REVIEWED WITH PT. F/U APPOINTMENTS DISCUSSED, SCHEDULED, PRINTED FOR PT. REVIEWED MEDICATION CHANGES WITH PT. QUESTIONS WELCOMED, PT DENIED FURTHER QUESTIONS OR NEEDS. BELONGINGS GATHERED BY FARM EQUIPMENT TECHNICIAN WITH PT INPUT. PT RESTING IN RECLINER AT THIS TIME, WAITING FAMILY MEMBER FOR TRANSPORT.
--- NOTE | 2024-05-21 11:23 | NUR ---
PT LEFT FACILITY AT THIS TIME, VIA W/C, WITH BELONGINGS, WITH FAMILY MEMBER DRIVING.
--- NOTE | 2024-05-21 11:52 | NUR ---
workers' compensation claims supervisor contacted [facility] to schedule outpatient PT. [facility] did not have any appointments available until June 03 but [facility] location was able to schedule patient for May 27 at 11 am. SW faxed referral and discharge orders to [facility]. SW left a detailed voicemail with patient's sister, Esmer, to notify her of the scheduled appointment and location. SW met with patient and provided the appointment date, time and location written on a paper for patient. ELENA explained if patient wanted to be switched to the [place] location he could but she wanted to ensure he had an appointment scheduled for next week. Patient understood and stated [facility] okay and had no issues with this. Discharge plan: Home with outpatient PT - [facility]
--- NOTE | 2024-05-21 14:18 | NUR ---
Discharge QIM scores were reviewed by the team. Code of 6 chosen for walking 150 feet was determined by team discussion to be the most usual performance for this patient during the discharge assessment period.--Kath García, PD
== END 2024-05-21 11:24 | disposition home or self-care (01) | DRG 561 ==
PROVIDERS: ADMIT Physical Medicine & Rehabilitation Sports Medicine
DX: S12.500D Unspecified displaced fracture of sixth cervical vertebra, subsequent encounter for fracture with routine healing (principal); R26.89 Other abnormalities of gait and mobility; N40.0 Benign prostatic hyperplasia without lower urinary tract symptoms; M54.12 Radiculopathy, cervical region; E11.9 Type 2 diabetes mellitus without complications; I25.10 Atherosclerotic heart disease of native coronary artery without angina pectoris; E78.5 Hyperlipidemia, unspecified; I10 Essential (primary) hypertension; R13.12 Dysphagia, oropharyngeal phase; E87.6 Hypokalemia; S22.018D Other fracture of first thoracic vertebra, subsequent encounter for fracture with routine healing; S22.028D Other fracture of second thoracic vertebra, subsequent encounter for fracture with routine healing; S06.6XAD Traumatic subarachnoid hemorrhage with loss of consciousness status unknown, subsequent encounter; G89.29 Other chronic pain; M54.50 Low back pain, unspecified; D64.89 Other specified anemias; K21.9 Gastro-esophageal reflux disease without esophagitis; K59.00 Constipation, unspecified; V48.0XXD Car driver injured in noncollision transport accident in nontraffic accident, subsequent encounter; Z95.5 Presence of coronary angioplasty implant and graft; Z95.0 Presence of cardiac pacemaker; Z79.82 Long term (current) use of aspirin; Z79.02 Long term (current) use of antithrombotics/antiplatelets; Z79.899 Other long term (current) drug therapy; Z79.84 Long term (current) use of oral hypoglycemic drugs; R29.898 Other symptoms and signs involving the musculoskeletal system; Z74.09 Other reduced mobility; Z86.73 Personal history of transient ischemic attack (TIA), and cerebral infarction without residual deficits; Z98.1 Arthrodesis status; I95.1 Orthostatic hypotension; G47.8 Other sleep disorders
CPT/HCPCS: A9284; J1644

== ENCOUNTER 2024-05-27 09:40 | Outpatient (RCR) | payer MEDICARE | END 2024-05-28 | disposition home or self-care (01) | LOC: MKS.ESL.PT | DX: S12.9XXD Fracture of neck, unspecified, subsequent encounter (principal); M48.02 Spinal stenosis, cervical region; Z98.890 Other specified postprocedural states; X58.XXXD Exposure to other specified factors, subsequent encounter ==